=== PATIENT | male | born 1930 | race African-American/Black ===

== ENCOUNTER 2016-08-25 09:11 | Emergency (ER) | payer OTHER, BC ==
[2016-08-25 09:26] VITALS: RESP 16; TEMP 97.9; O2SAT 98
[2016-08-25] MEDS ORDERED: HYDROCODONE/APAP 5/325 TAB PO ONE ×2 (10:05→11:26)
[2016-08-25 10:39] VITALS: BP 132/87; PULSE 86
--- NOTE | 2016-08-25 11:40 | US ---
Ultrasound Venous Duplex/Doppler Right Leg History: Pain and swelling. *Leg pain, possible DVT* Findings: Ultrasound venous duplex and Doppler imaging of the common femoral vein, femoral vein, pop liteal vein, calf veins, greater saphenous vein origin, and contralateral common femoral vein demonst rates normal compressibility, color flow, and Doppler flow without deep venous thrombosis. Impression: No deep venous thrombosis right leg. Findings and recommendations discussed with Emergency Department physician, DESTINY Khan at 11:38 hour, 08/25/2016. Final report concurs with initial preliminary interpretation.
--- NOTE | 2016-08-25 11:44 | EDPHY ---
H & P Stated Complaint: Fall, 3 weeks ago, Right hip pain, leg swelling. Time Seen by Provider: 08/25/16 09:38 HPI/ROS: Chief complaint: Fall with right hip pain, swelling of right leg History of present illness: This is an 86-year-old male who presents to the emergency department with EMS from his assisted living home for evaluation of right hip pain and swelling of the right leg. Patient reportedly has a history of chronic hip pain. apparently patient fell 3 weeks ago. He has had increased right hip pain since then. Staff is also notices right leg appears slightly swollen. Patient denies other associated signs or symptoms. No report of fever , cough, shortness of breath, chest pain. Review of systems: A 10 point review of systems was obtained and other than described above is negative - Personal History Current Tetanus/Diphtheria Vaccine: Yes Current Tetanus Diphtheria and Acellular Pertussis (TDAP): Yes Tetanus Vaccine Date: UNSURE - Medical/Surgical History Hx Asthma: No Hx Chronic Respiratory Disease: No Hx Diabetes: No Hx Cardiac Disease: Yes Hx Renal Disease: No Hx Cirrhosis: No Hx Alcoholism: No Hx HIV/AIDS: No Hx Splenectomy or Spleen Trauma: No Other PMH: CAD, Stents x5, HTN, hyperlipidemia,CHF, hernis repair, R hip fx 01/28 , right hip fracture - Social History Smoking Status: Never smoked - Physical Exam Exam: General Appearance: Alert, nontoxic. Eyes: Pupils equal and round no injection. Respiratory: Chest is non tender, lungs are clear to auscultation. Cardiac: regular rate and rhythm Gastrointestinal: Abdomen is soft and non tender, no masses, bowel sounds normal. Musculoskeletal: Neck is supple and non tender. Tenderness to the right hip. It hurts when I range it. Trace edema to the right calf region as compared to the left. Skin: No rashes or lesions. Constitutional: Initial Vital Signs Temperature (C) 36.6 C 08/25/16 09:23 Heart Rate 98 08/25/16 09:23 Respiratory Rate 16 08/25/16 09:23 Blood Pressure 133/89 H 08/25/16 09:23 O2 Sat (%) 98 08/25/16 09:23 O2 Delivery Mode Room Air Allergies/Adverse Reactions: Penicillins Allergy (Mild, Verified 06/10/16 12:42) Rash Home Medications: Medication Instructions Recorded ALPRAZolam [Xanax 0.25 MG (*)] 0.25 mg PO HS PRN 03/23/16 Atorvastatin Calcium [Lipitor 40 40 mg PO HS 03/23/16 mg (*)] Pantoprazole Sodium [Protonix 40mg 40 mg PO DAILY 03/23/16 (*)] Acetaminophen [Tylenol 325mg (*)] 650 mg PO Q4 PRN #0 tab 03/26/16 Methyl Salicylate/Menthol [Icy Hot 1 madhuri TP PRN PRN 06/10/16 [place]] Ondansetron Odt [Zofran Odt 4 mg 4 mg PO Q6 PRN 06/10/16 (*)] Aspirin [Aspirin 81mg (*)] 81 mg PO DAILY #0 tab.chew 06/13/16 Carvedilol [Coreg (*)] 3.125 mg PO BIDMEAL #0 tab 06/13/16 Furosemide [Lasix 20 MG (*)] 20 mg PO DAILY #0 tab 06/13/16 Lisinopril [Zestril 2.5 mg (*)] 2.5 mg PO DAILY #0 tab 06/13/16 Potassium Cl [Klor-Con 20 meq (*)] 20 meq PO DAILY #0 tab 06/13/16 Melatonin 08/25/16 Medical Decision Making - Diagnostics Imaging: X-ray of the right hip negative for acute fracture Ultrasound of the right leg negative for DVT ED Course/Re-evaluation: Patient seen under the supervision of my secondary supervising physician Dr. Cristobal Cohen. Patient presents to the emergency department with EMS for right hip pain and right leg swelling. Patient is nontoxic. Vital signs are stable. X-ray of the right hip negative. Ultrasound right leg negative for DVT. He does have a history of chronic problems in this region. Likely an exacerbation. He is discharged back to his living facility. He is to follow up with his primary care doctor through there. Differential Diagnosis: Included but not limited to contusion, fracture, joint dislocation, DVT, superficial thrombophlebitis, cellulitis - Data Points Medications Given: Discontinued Medications Acetaminophen/Hydrocodone Bitart ([place] 5/325) 1 tab PO EDNOW ONE Stop: 08/25/16 10:06 Last Admin: 08/25/16 10:18 Dose: 1 tab Acetaminophen/Hydrocodone Bitart ([place] 5/325) 1 tab PO EDNOW ONE Stop: 08/25/16 11:27 Last Admin: 08/25/16 11:32 Dose: 1 tab Departure - Departure Disposition: Home, Routine, Self-Care Clinical Impression: Right hip pain Condition: Good Instructions: Hip Pain (ED) Additional Instructions: Follow-up with your primary care doctor for recheck next week If symptoms worsen or new symptoms develop return to the emergency department for recheck Referrals: [facility] [Primary Care Provider] - As per Instructions
--- NOTE | 2016-08-25 11:46 | DX ---
Right Hip, Two Views Indication: Hip pain Technique: AP and frog-leg lateral views. Comparison: Right hip series dated March 23, 2016 Findings: The configuration of the 4 cannulated screws in the right femoral neck is unchanged. No acu te fracture. Moderate bilateral hip osteoarthritis evidenced by joint space narrowing and marginal os teophytes is unchanged. Impression: 1. No acute fracture. 2. Bilateral osteoarthritis unchanged.
== END 2016-08-25 13:10 | disposition home or self-care (01) ==
LOC: EDUNIT#
DX: S79.911A Unspecified injury of right hip, initial encounter (principal); I10 Essential (primary) hypertension; I50.9 Heart failure, unspecified; I25.10 Atherosclerotic heart disease of native coronary artery without angina pectoris; Z95.5 Presence of coronary angioplasty implant and graft; Z79.82 Long term (current) use of aspirin; W19.XXXA Unspecified fall, initial encounter

== ENCOUNTER 2016-09-23 23:32 | Inpatient (IN) | payer OTHER, BC ==
[2016-09-23] MEDS ORDERED: NS 500 ML IV ONE (23:36)
--- NOTE | 2016-09-23 23:38 | EDPHY ---
H & P HPI/ROS: HPI CHIEF COMPLAINT: Chest pain, chest pain now resolved HISTORY OF PRESENT ILLNESS: This patient very pleasant 86-year-old male he lives in [facility], he presents emergency room by EMS for chest pain. Patient tells me he has had chest pain throughout the entire day it comes and goes however he has very poor historian with underlying dementia and does very poor job describing his chest pain. He tells me it is now resolved. Also tells me did hurt when you press on his chest wall. Of note this patient has significant past medical history for cardiac risk factors including coronary artery disease with multiple stents, diastolic heart failure last EF 15%, cardiomyopathy, hypertension, hyperlipidemia. Patient tells me had chest pain all day states he called 911 this evening as it got really bad. Since arrival to the emergency room by EMS that is resolved. Of note this patient was admitted back in May for chest pain had a positive troponin thought to due to be underlying cardiomyopathy reduced EF, her declined any aggressive measures declined cardiac catheterization or stress test was medically managed. declined AICD. Patient does poor job of explaining his chest pain he just tells me that his chest was really hurting him. In review of his records he is a full code. Past Medical History: Coronary artery disease with stents, dementia, diastolic heart failure EF 15%, cardiomyopathy, hypertension, hyperlipidemia Past Surgical History: No recent surgical history however hernia repair right hip surgery Social History: Denies use of drugs alcohol tobacco products, lives at [facility] Family History: noncontributory there is a present left bundle-branch block with ST depression V4 V5 V6 with T- wave inversions similar to previous EKG. Exam Constitutional triage nursing summary reviewed, vital signs reviewed, awake/ alert. Eyes normal conjunctivae and sclera, EOMI, PERRLA. HENT normal inspection, atraumatic, moist mucus membranes, no epistaxis, neck supple/ no meningismus, no raccoon eyes. Respiratory clear to auscultation bilaterally, normal breath sounds, no respiratory distress, no wheezing. Cardiovascular rate normal, regular rhythm, no murmur, no edema, distal pulses normal. Gastrointestinal soft, non-tender, no rebound, no guarding, normal bowel sounds, no distension, no pulsatile mass. Genitourinary no CVA tenderness. Musculoskeletal no midline vertebral tenderness, full range of motion, no calf swelling, no tenderness of extremities, no meningismus, good pulses, neurovascularly intact. Skin pink, warm, & dry, no rash, skin atraumatic. Neurologic awake, alert and oriented x 3, AAOx3, moves all 4 extremities equally, motor intact, sensory intact, CN II-XII intact, normal cerebellar, normal vision, normal speech. Psychiatric normal mood/affect. Heme/Lymph/Immune no lymphadenopathy. Differential diagnosis includes but is not limited to: ACS, atypical chest pain , pneumothorax, pneumonia, pulmonary embolism, aortic dissection, congestive heart failure, tumor, musculoskeletal pain, esophageal pain, GERD, peptic ulcer disease, pancreatitis Medical Decision Making: This patient will be placed on full cardiac sonographer, an IV will be established, patient had an EKG, chest x-ray, blood work including troponin, BNP receive full-dose aspirin however he is chest pain-free at this time. Re-evaluation: EKG interpretation by me on record in [employer] system. Impression time of EKG 12:05 a.m.: This EKG is sinus rhythm rate of 96, left bundle-branch block present. Compared to his old EKG dated: 06/10/2016, very similar morphology no acute changes seen. Does have ST depression in V4 V5 V6 with T- wave abnormalities. ED x-ray chest one view: image interpreted myself. Shows cardiomegaly, there is either multifocal pneumonia or atypical infiltrates adverse asymmetrical pulmonary edema. There is also superimposed pulmonary edema bilaterally with cephalization of fluid. There is upset duration of the right heart border as well as the left lower heart border. Image interpreted by myself EKG interpretation by me on record in [employer] system. Impression time of EKG 1:33 a.m., this is sinus rhythm rate of 68, no acute ischemic changes specifically no ST elevation, ST depression, T-wave abnormalities prolonged intervals. Unremarkable EKG. 0151: This patient's blood work and x-ray indicate that this patient is an volume overload. The patient is not hypoxic is hemodynamically stable here is not overly hypertensive. Patient is resting comfortably has no chest pain at this time. I have admitted him to the hospitalist service to be diuresed, his chest x-ray shows asymmetrical pulmonary edema, his CT scan shows bilateral pleural effusions cardiomegaly and pulmonary edema This patient will be diuresed I have ordered him IV Lasix 40 mg. Patient be admitted to PCU for CHF, pulmonary edema, volume overload. Dr. Lentz agrees to admit this patient. Source: Patient, EMS Exam Limitations: Clinical condition - Personal History Tetanus Vaccine Date: UNSURE - Medical/Surgical History Hx Asthma: No Hx Chronic Respiratory Disease: No Hx Diabetes: No Hx Cardiac Disease: Yes Hx Renal Disease: No Hx Cirrhosis: No Hx Alcoholism: No Hx HIV/AIDS: No Hx Splenectomy or Spleen Trauma: No Other PMH: CAD, Stents x5, HTN, hyperlipidemia,CHF, hernis repair, R hip fx 01/28 , right hip fracture - Social History Smoking Status: Never smoked Constitutional: Initial Vital Signs Temperature (C) 36.3 C 09/23/16 23:35 Heart Rate 100 09/23/16 23:35 Respiratory Rate 18 09/23/16 23:35 Blood Pressure 155/114 H 09/23/16 23:35 O2 Sat (%) 95 09/23/16 23:35 O2 Delivery Mode Room Air Allergies/Adverse Reactions: Penicillins Allergy (Mild, Verified 09/23/16 23:44) Rash Home Medications: Medication Instructions Recorded ALPRAZolam [Xanax 0.25 MG (*)] 0.25 mg PO HS PRN 03/23/16 Atorvastatin Calcium [Lipitor 40 40 mg PO HS 03/23/16 mg (*)] Pantoprazole Sodium [Protonix 40mg 40 mg PO DAILY 03/23/16 (*)] Acetaminophen [Tylenol 325mg (*)] 650 mg PO Q4 PRN #0 tab 03/26/16 Methyl Salicylate/Menthol [Icy Hot 1 madhuri TP PRN PRN 06/10/16 [place]] Ondansetron Odt [Zofran Odt 4 mg 4 mg PO Q6 PRN 06/10/16 (*)] Aspirin [Aspirin 81mg (*)] 81 mg PO DAILY #0 tab.chew 06/13/16 Carvedilol [Coreg (*)] 3.125 mg PO BIDMEAL #0 tab 06/13/16 Furosemide [Lasix 20 MG (*)] 20 mg PO DAILY #0 tab 06/13/16 Lisinopril [Zestril 2.5 mg (*)] 2.5 mg PO DAILY #0 tab 06/13/16 Potassium Cl [Klor-Con 20 meq (*)] 20 meq PO DAILY #0 tab 06/13/16 Melatonin 08/25/16 Mylanta Liquid 09/23/16 Medical Decision Making - Data Points Laboratory Results: Laboratory Results 09/24/16 00:07 09/24/16 00:07 09/24/16 09/24/16 09/24/16 00:07 00:07 00:07 WBC RBC Hgb Hct MCV MCH MCHC RDW Plt Count MPV Neut % (Auto) Lymph % (Auto) Mclean % (Auto) Eos % (Auto) Baso % (Auto) Nucleat RBC Rel Count Absolute Neuts (auto) Absolute Lymphs (auto) Absolute Monos (auto) Absolute Eos (auto) Absolute Basos (auto) Absolute Nucleated RBC Immature Gran % Immature Gran # PT 15.0 SEC SEC (12.0-15.0) INR 1.18 H (0.83-1.16) APTT 32.3 SEC SEC (23.0-38.0) VBG Lactic Acid 1.9 mmol/L mmol/L (0.7-2.1) Sodium 144 mEq/L mEq/L (134-144) Potassium 4.5 mEq/L mEq/L (3.5-5.2) Chloride 108 mEq/L mEq/L (97-110) Carbon Dioxide 22 mEq/l mEq/l (22-31) Anion Gap 14 mEq/L mEq/L (8-16) BUN 19 mg/dL mg/dL (7-23) Creatinine 0.8 mg/dL mg/dL (0.7-1.3) Estimated GFR > 60 Glucose 124 mg/dL H mg/dL (70-100) Calcium 8.9 mg/dL mg/dL (8.5-10.4) Magnesium 1.9 mg/dL mg/dL (1.6-2.3) Total Bilirubin 0.8 mg/dL mg/dL (0.1-1.4) Conjugated Bilirubin 0.4 mg/dL mg/dL (0.0-0.5) Unconjugated Bilirubin 0.4 mg/dL mg/dL (0.0-1.1) AST 31 IU/L IU/L (17-59) ALT 37 IU/L IU/L (21-72) Alkaline Phosphatase 76 IU/L IU/L (38-126) Creatine Kinase 41 IU/L IU/L (0-224) CK-MB (CK-2) Fraction 0.66 ng/mL ng/mL (0-3.19) Troponin I 0.023 ng/mL ng/mL (0-0.034) NT-Pro-B Natriuret Pep 6900 pg/mL H pg/mL (0-450) Total Protein 6.5 g/dL g/dL (6.3-8.2) Albumin 3.5 g/dL g/dL (3.5-5.0) Lipase 107.0 IU/L IU/L (23-300) 09/24/16 00:07 WBC 7.18 10^3/uL 10^3/uL (3.80-9.50) RBC 4.49 10^6/uL 10^6/uL (4.40-6.38) Hgb 13.1 g/dL L g/dL (13.7-17.5) Hct 39.6 % L % (40.0-51.0) MCV 88.2 fL fL (81.5-99.8) MCH 29.2 pg pg (27.9-34.1) MCHC 33.1 g/dL g/dL (32.4-36.7) RDW 16.5 % H % (11.5-15.2) Plt Count 268 10^3/uL 10^3/uL (150-400) MPV 9.2 fL fL (8.7-11.7) Neut % (Auto) 70.4 % % (39.3-74.2) Lymph % (Auto) 18.1 % % (15.0-45.0) Mclean % (Auto) 8.8 % % (4.5-13.0) Eos % (Auto) 1.8 % % (0.6-7.6) Baso % (Auto) 0.6 % % (0.3-1.7) Nucleat RBC Rel Count 0.0 % % (0.0-0.2) Absolute Neuts (auto) 5.06 10^3/uL 10^3/uL (1.70-6.50) Absolute Lymphs (auto) 1.30 10^3/uL 10^3/uL (1.00-3.00) Absolute Monos (auto) 0.63 10^3/uL 10^3/uL (0.30-0.80) Absolute Eos (auto) 0.13 10^3/uL 10^3/uL (0.03-0.40) Absolute Basos (auto) 0.04 10^3/uL 10^3/uL (0.02-0.10) Absolute Nucleated RBC 0.00 10^3/uL 10^3/uL (0-0.01) Immature Gran % 0.3 % % (0.0-1.1) Immature Gran # 0.02 10^3/uL 10^3/uL (0.00-0.10) PT INR APTT VBG Lactic Acid Sodium Potassium Chloride Carbon Dioxide Anion Gap BUN Creatinine Estimated GFR Glucose Calcium Magnesium Total Bilirubin Conjugated Bilirubin Unconjugated Bilirubin AST ALT Alkaline Phosphatase Creatine Kinase CK-MB (CK-2) Fraction Troponin I NT-Pro-B Natriuret Pep Total Protein Albumin Lipase Medications Given: Discontinued Medications Aspirin (Aspirin) 324 mg PO EDNOW ONE Stop: 09/23/16 23:43 Last Admin: 09/24/16 00:00 Dose: 324 mg Furosemide (Lasix Injection) 40 mg IVP EDNOW ONE Stop: 09/24/16 00:58 Last Admin: 09/24/16 01:45 Dose: 40 mg Sodium Chloride (Ns) 500 mls @ 0 mls/hr IV ONCE ONE PRN Reason: As Directed Stop: 09/23/16 23:37 Last Admin: 09/24/16 00:00 Dose: 500 mls Departure - Departure Disposition: [facility] Inpatient Acute Clinical Impression: Acute decompensated heart failure Chest pain Qualifiers: Chest pain type: other chest pain Qualified Code(s): R07.89 - Other chest pain ; R07.8 - Other chest pain Pulmonary edema Qualifiers: Chronicity: acute Qualified Code(s): J81.0 - Acute pulmonary edema Volume overload Qualifiers: Hypervolemia type: unspecified Qualified Code(s): E87.70 - Fluid overload, unspecified Condition: Fair Referrals: [facility] [Primary Care Provider] - As per Instructions
[2016-09-23] MEDS ORDERED: ASPIRIN 81 MG CHEWABLE TAB PO ONE (23:42)
--- NOTE | 2016-09-24 00:07 | CPEKG ---
Heart Rate: 96 RR Interval: 625 P-R Interval: 200 QRSD Interval: 160 QT Interval: 428 QTC Interval: 541 P [place]: 33 QRS [place]: -39 T Wave [place]: 121 EKG Severity - ABNORMAL ECG - EKG Impression: SINUS RHYTHM EKG Impression: LEFT BUNDLE BRANCH BLOCK Electronically Signed By: Kel Tierney 26-Sep-2016 15:10:37
[2016-09-24 00:14] LABS: % IMMATURE GRANULYOCYTES 0.3 % (0.0-1.1); ABSOLUTE IMMATURE GRANULOCYTES 0.02 10^3/uL (0.00-0.10); ADD DIFF? NO; ADD MORPH? NO; ADD SCAN? NO; ATYPICAL LYMPHOCYTE FLAG 40 (0-99); FRAGMENT RBC FLAG 0 (0-99); HEMATOCRIT 39.6 % (40.0-51.0); HEMOGLOBIN 13.1 g/dL (13.7-17.5); LEFT SHIFT FLG 10 (0-99); LIPEMIA HEMOLYSIS FLAG 80 (0-99); MEAN CELL HEMOGLOBIN 29.2 pg (27.9-34.1); MEAN CELL HEMOGLOBIN CONCENTR. 33.1 g/dL (32.4-36.7); MEAN CELL VOLUME 88.2 fL (81.5-99.8); MEAN PLATELET VOLUME 9.2 fL (8.7-11.7); PLATELET CLUMPS FLAG 0 (0-99); PLATELET COUNT 268 10^3/uL (150-400); RED BLOOD CELL COUNT 4.49 10^6/uL (4.40-6.38); RED CELL DISTRIBUTION WIDTH 16.5 % (11.5-15.2)
[2016-09-24 00:23] LABS: INR 1.18 (0.83-1.16)
[2016-09-24 00:24] LABS: APTT 32.3 SEC (23.0-38.0)
[2016-09-24 00:38] LABS: ALANINE AMINOTRANSFERASE 37 IU/L (21-72); ALBUMIN 3.5 g/dL (3.5-5.0); ALKALINE PHOSPHATASE 76 IU/L (38-126); ANION GAP 14 mEq/L (8-16); ASPARTATE AMINOTRANSFERASE 31 IU/L (17-59); BILIRUBIN,TOTAL 0.8 mg/dL (0.1-1.4); BILIRUBIN-CONJUGATED 0.4 mg/dL (0.0-0.5); BILIRUBIN-UNCONJUGATED 0.4 mg/dL (0.0-1.1); CALCIUM 8.9 mg/dL (8.5-10.4); CARBON DIOXIDE 22 mEq/l (22-31); CHLORIDE 108 mEq/L (97-110); CREATININE 0.8 mg/dL (0.7-1.3); GLOMERULAR FILTRATION RATE > 60; GLUCOSE 124 mg/dL (70-100); MAGNESIUM 1.9 mg/dL (1.6-2.3); POTASSIUM 4.5 mEq/L (3.5-5.2); SODIUM 144 mEq/L (134-144); TOTAL PROTEIN 6.5 g/dL (6.3-8.2)
[2016-09-24] MEDS ORDERED: IOPAMIDOL (ISOVUE-300) 100 ML BTL IV ONE ×2 (00:46→01:11)
[2016-09-24 00:49] LABS: CREATINE KINASE-MB FRACTION 0.66 ng/mL (0-3.19)
[2016-09-24] MEDS ORDERED: FUROSEMIDE 40 MG/4 ML VIAL IVP ONE (00:57)
[2016-09-24 01:00] LABS: TROPONIN I 0.023 ng/mL (0-0.034)
[2016-09-24] MEDS ORDERED: ONDANSETRON 4 MG/2 ML VIAL IVP PRN (03:53)
[2016-09-24] MEDS ORDERED: ACETAMINOPHEN 325 MG TAB PO PRN (03:53)
[2016-09-24] MEDS ORDERED: ONDANSETRON DISINTEGRATING 4 MG TAB PO PRN (03:53)
[2016-09-24] MEDS ORDERED: HYDROCODONE/APAP 5/325 TAB PO PRN (03:53)
--- NOTE | 2016-09-24 04:15 | PDGENHP ---
History and Physical - Chief Complaint chest pain - History of Present Illness Patient is an 86/M with CAD, HTN, HLD and severe systolic/diastolic CHF (EF 15% in 05/2016) who presents to the ED with complaint of shortness of breath and chest pain. Patient states for the past week he has been unable to sleep due to sensation of dyspnea when lying flat. Today, in the evening prior to arrival, he also began experiencing chest pain and tightness associated with the dyspnea. He denies any palpitations, lightheadedness, dizziness, abdominal pain , n/v/d. He also denies any recent fevers, chills, but does report a dry cough. Given his complaint of chest pain, he was transported to the Ed for further evaluation On arrival to the Ed, patient was afebrile and hemodynamically stable. Labs revealed normal CBC and BMP, but indeterminant trop and elevated BNP. CXR revealed bilateral effusions. CT angio chest was also obtained, which ruled out PE and showed b/l effusions and edema. EKG showed his old LBBB without obvious change. He was initiated on diuresis and admitted to the hospitalist service for further management. History Information - Allergies/Home Medication List Allergies/Adverse Reactions: Penicillins Allergy (Mild, Verified 09/23/16 23:44) Rash Home Medications: ALPRAZolam [Xanax 0.25 MG (*)] 0.25 mg PO HS PRN 03/23/16 [Last Taken Unknown] Atorvastatin Calcium [Lipitor 40 mg (*)] 40 mg PO HS 03/23/16 [Last Taken Unknown] Pantoprazole Sodium [Protonix 40mg (*)] 40 mg PO DAILY 03/23/16 [Last Taken Unknown] Methyl Salicylate/Menthol [Icy Hot [place]] 1 madhuri TP PRN PRN 06/10/16 [Last Taken Unknown] Ondansetron Odt [Zofran Odt 4 mg (*)] 4 mg PO Q6 PRN 06/10/16 [Last Taken Unknown] Melatonin 08/25/16 [Last Taken Unknown] Mylanta Liquid 09/23/16 [Last Taken Unknown] I have personally reviewed and updated: family history, medical history, social history, surgical history - Past Medical History Additional medical history: CAD, s/p multiple PCIs. CHF, global hypokinesis with EF 15% in 05/2016. HTN. chronic LBBB. HLD. mild dementia. R hip fracture without surgical repair, wheelchair bound - Surgical History Additional surgical history: R hip percutaneous pinning - Family History Positive for: non-pertinent - Social History Smoking Status: Never smoked Alcohol Use: None Drug Use: None Additional social history: Currently resides in [facility], wheelchair bound. Retired from the [employer], originally from [place]. Review of Systems ROS: 10pt was reviewed & negative except for what was stated in HPI & below Physical Exam Temp Pulse Resp BP Pulse Ox 36.3 C 86 16 143/88 H 97 09/24/16 03:15 09/24/16 03:15 09/24/16 03:15 09/24/16 03:15 09/24/16 03:15 Constitutional: no apparent distress, appears nourished, not in pain Eyes: PERRL, anicteric sclera, EOMI Ears, Nose, Mouth, Throat: moist mucous membranes, hearing normal, ears appear normal, no oral mucosal ulcers Cardiovascular: regular rate and rhythym, no murmur, rub, or gallop, edema (1-2+ , R>L) Peripheral Pulses: 2+: dorsalis-pedis (R), dorsalis-pedis (L) Respiratory: no respiratory distress, no rales or rhonchi, reduced air movement (in bilateral bases) Gastrointestinal: normoactive bowel sounds, soft, non-tender abdomen, no palpable masses, No guarding, No rebound, No distension Genitourinary: no bladder fullness, no bladder tenderness Skin: warm, normal color, no rashes or abrasions, no fluctuance, no induration, No mottled Musculoskeletal: full muscle strength, no muscle tenderness, normal joint ROM, no joint effusions Neurologic: AAOx3, sensation intact bilaterally, CN II-XII Intact, No weakness, No numbness, No facial droop Psychiatric: interacting appropriately, not anxious, not encephalopathic, thought process linear Lab Data & Imaging Review 09/24/16 00:07 09/24/16 00:07 WBC 7.18 10^3/uL (3.80-9.50) 09/24/16 00:07 RBC 4.49 10^6/uL (4.40-6.38) 09/24/16 00:07 Hgb 13.1 g/dL (13.7-17.5) L 09/24/16 00:07 Hct 39.6 % (40.0-51.0) L 09/24/16 00:07 MCV 88.2 fL (81.5-99.8) 09/24/16 00:07 MCH 29.2 pg (27.9-34.1) 09/24/16 00:07 MCHC 33.1 g/dL (32.4-36.7) 09/24/16 00:07 RDW 16.5 % (11.5-15.2) H 09/24/16 00:07 Plt Count 268 10^3/uL (150-400) 09/24/16 00:07 MPV 9.2 fL (8.7-11.7) 09/24/16 00:07 Neut % (Auto) 70.4 % (39.3-74.2) 09/24/16 00:07 Lymph % (Auto) 18.1 % (15.0-45.0) 09/24/16 00:07 [place] % (Auto) 8.8 % (4.5-13.0) 09/24/16 00:07 Eos % (Auto) 1.8 % (0.6-7.6) 09/24/16 00:07 Baso % (Auto) 0.6 % (0.3-1.7) 09/24/16 00:07 Nucleat RBC Rel Count 0.0 % (0.0-0.2) 09/24/16 00:07 Absolute Neuts (auto) 5.06 10^3/uL (1.70-6.50) 09/24/16 00:07 Absolute Lymphs (auto) 1.30 10^3/uL (1.00-3.00) 09/24/16 00:07 Absolute Monos (auto) 0.63 10^3/uL (0.30-0.80) 09/24/16 00:07 Absolute Eos (auto) 0.13 10^3/uL (0.03-0.40) 09/24/16 00:07 Absolute Basos (auto) 0.04 10^3/uL (0.02-0.10) 09/24/16 00:07 Absolute Nucleated RBC 0.00 10^3/uL (0-0.01) 09/24/16 00:07 Immature Gran % 0.3 % (0.0-1.1) 09/24/16 00:07 Immature Gran # 0.02 10^3/uL (0.00-0.10) 09/24/16 00:07 PT 15.0 SEC (12.0-15.0) 09/24/16 00:07 INR 1.18 (0.83-1.16) H 09/24/16 00:07 APTT 32.3 SEC (23.0-38.0) 09/24/16 00:07 VBG Lactic Acid 1.9 mmol/L (0.7-2.1) 09/24/16 00:07 Sodium 144 mEq/L (134-144) 09/24/16 00:07 Potassium 4.5 mEq/L (3.5-5.2) 09/24/16 00:07 Chloride 108 mEq/L (97-110) 09/24/16 00:07 Carbon Dioxide 22 mEq/l (22-31) 09/24/16 00:07 Anion Gap 14 mEq/L (8-16) 09/24/16 00:07 BUN 19 mg/dL (7-23) 09/24/16 00:07 Creatinine 0.8 mg/dL (0.7-1.3) 09/24/16 00:07 Estimated GFR > 60 09/24/16 00:07 Glucose 124 mg/dL (70-100) H 09/24/16 00:07 Calcium 8.9 mg/dL (8.5-10.4) 09/24/16 00:07 Magnesium 1.9 mg/dL (1.6-2.3) 09/24/16 00:07 Total Bilirubin 0.8 mg/dL (0.1-1.4) 09/24/16 00:07 Conjugated Bilirubin 0.4 mg/dL (0.0-0.5) 09/24/16 00:07 Unconjugated Bilirubin 0.4 mg/dL (0.0-1.1) 09/24/16 00:07 AST 31 IU/L (17-59) 09/24/16 00:07 ALT 37 IU/L (21-72) 09/24/16 00:07 Alkaline Phosphatase 76 IU/L (38-126) 09/24/16 00:07 Creatine Kinase 41 IU/L (0-224) 09/24/16 00:07 CK-MB (CK-2) Fraction 0.66 ng/mL (0-3.19) 09/24/16 00:07 Troponin I 0.023 ng/mL (0-0.034) 09/24/16 00:07 NT-Pro-B Natriuret Pep 6900 pg/mL (0-450) H 09/24/16 00:07 Total Protein 6.5 g/dL (6.3-8.2) 09/24/16 00:07 Albumin 3.5 g/dL (3.5-5.0) 09/24/16 00:07 Lipase 107.0 IU/L (23-300) 09/24/16 00:07 Visualized and Interpreted Chest x-ray results: Yes Chest X-Ray results: effusion Visualized and Interpreted imaging results: Yes Interpretation: CT angio chest: no pulm emboli, b/l pleural effusions with pulmonary edema Visualized and Interpreted EKG results: Yes EKG Interpretation: Positive for: left bundle branch block (old) Assessment & Plan Assessment: Patient is an 86/M with HTN, HLD, CAD and severe chronic systolic CHF who presents to the ED with 1 week of worsening orthopnea and dyspnea, which has become associated with intermittent chest pain. ED work up reveals acute decompensated systolic heart failure. Plan: # acute on chronic systolic CHF Patient is complaining of increasing dyspnea and orthopnea x 1 week. In addition , his admission weight is > 10 kg over previous admission weight, he has bilateral pitting edema. BNP is significantly elevated above previous levels, CXR/CT chest also shows bilateral pleural effusions and pulmonary edema. However , patient is saturating well on room air and respiration is unlabored. - monitor strict I/Os, daily weights - aggressive lasix diuresis - monitor electrolytes, with goal K>4, Mg>2 - trend troponins, monitor EKGs and telemetry - re-check TTE - confirm and continue home HF regimen, including B-sherrie, ACEI, statin and aspirin # chest pain, known CAD Patient reports intermittent chest pain on the evening prior to presenting to ED. On my evaluation, he denied any symptoms. Troponin is indeterminately elevated, likely demand ischemia in setting of decompensated HF. Will cont to trend cardiac enzymes and cont all home meds. # HLD Cont home statin. # dispo: admit to inpatient service for likely > 2 [place] stay given acute decompensated heart failure requiring diuresis # gen: Cardiac diet DVT ppx: lovenox Full code
[2016-09-24 05:55] LABS: % IMMATURE GRANULYOCYTES 0.2 % (0.0-1.1); ABSOLUTE IMMATURE GRANULOCYTES 0.01 10^3/uL (0.00-0.10); ADD DIFF? NO; ADD MORPH? NO; ADD SCAN? NO; ATYPICAL LYMPHOCYTE FLAG 20 (0-99); FRAGMENT RBC FLAG 0 (0-99); HEMATOCRIT 39.4 % (40.0-51.0); HEMOGLOBIN 13.2 g/dL (13.7-17.5); LEFT SHIFT FLG 0 (0-99); LIPEMIA HEMOLYSIS FLAG 80 (0-99); MEAN CELL HEMOGLOBIN 29.9 pg (27.9-34.1); MEAN CELL HEMOGLOBIN CONCENTR. 33.5 g/dL (32.4-36.7); MEAN CELL VOLUME 89.3 fL (81.5-99.8); MEAN PLATELET VOLUME 9.3 fL (8.7-11.7); PLATELET CLUMPS FLAG 0 (0-99); PLATELET COUNT 273 10^3/uL (150-400); RED BLOOD CELL COUNT 4.41 10^6/uL (4.40-6.38); RED CELL DISTRIBUTION WIDTH 16.3 % (11.5-15.2)
[2016-09-24 06:13] LABS: ANION GAP 11 mEq/L (8-16); CALCIUM 8.8 mg/dL (8.5-10.4); CARBON DIOXIDE 21 mEq/l (22-31); CHLORIDE 107 mEq/L (97-110); CREATININE 0.8 mg/dL (0.7-1.3); GLOMERULAR FILTRATION RATE > 60; GLUCOSE 115 mg/dL (70-100); MAGNESIUM 1.8 mg/dL (1.6-2.3); POTASSIUM 4.2 mEq/L (3.5-5.2); SODIUM 139 mEq/L (134-144)
[2016-09-24 06:15] LABS: APTT 33.5 SEC (23.0-38.0); INR 1.2 (0.83-1.16); PROTIME(PATIENT) 15.2 SEC (12.0-15.0)
[2016-09-24 06:23] LABS: TROPONIN I 0.015 ng/mL (0-0.034)
[2016-09-24] MEDS: FUROSEMIDE 40 MG/4 ML VIAL IVP SCH ×3 (06:27→22:00)
[2016-09-24] MEDS: ENOXAPARIN 40 MG/0.4 ML SYR SC SCH (10:55)
[2016-09-24] MEDS ORDERED: MENTHOL TP PRN ×2 (10:59→11:35)
[2016-09-24] MEDS ORDERED: METHYL SALICYLATE TP PRN ×2 (10:59→11:35)
[2016-09-24] MEDS ORDERED: ALPRAZolam 0.5 MG TAB PO PRN (10:59)
[2016-09-24] MEDS ORDERED: MAG HYDROX/AL HYDROX/SIMETH 30 ML UDCUP PO PRN (11:00)
--- NOTE | 2016-09-24 11:22 | HOSPPROG ---
Hospitalist Progress Note Assessment/Plan: # acute on chronic systolic CHF exacerbation: EF 15% - cont lasix 40 iv Q8 - cont coreg, lisinopril - recheck labs, CXR tomorrow am - no biV or AICD in place - echo pending # CAD s/p pci - trops flat, doubt ACS - cont asa, statin, coreg, lisinopril - chronic LBBB # w/c bound - lives at [facility] # L hip fx, no surgical repair # HLD # FCFT # lovenox ## new pt to me ECG personally reviewed CXR personally reviewed CT reviewed Subjective: ongoing dyspnea Objective: Vital Signs Temp Pulse Resp BP Pulse Ox 36.6 C 77 17 124/75 H 99 09/24/16 08:08 09/24/16 08:08 09/24/16 08:08 09/24/16 08:08 09/24/16 08:08 Laboratory Results 09/24/16 05:42 09/24/16 05:42 09/23/16 09/24/16 09/25/16 04:59 05:59 05:59 Output Total 800 Balance -800 PT 15.2 SEC (12.0-15.0) H 09/24/16 05:42 INR 1.20 (0.83-1.16) H 09/24/16 05:42 - Physical Exam Constitutional: cachectic Cardiovascular: regular rate and rhythym, systolic murmur, No irregularly irregular, No tachycardia, No bradycardia Respiratory: no respiratory distress, no rales or rhonchi, clear to auscultation Gastrointestinal: normoactive bowel sounds, soft, non-tender abdomen, no palpable masses ICD10 Worksheet Patient Problems: Problems Problem Status Onset Chest pain Acute CAD (coronary artery disease) Acute CHF (congestive heart failure) Acute Closed right hip fracture Acute UTI (urinary tract infection) Acute Generalized weakness Acute Hip fracture Acute Chronic Disease Mgmt/Transitional Care Acute Palliative care encounter Acute Pulmonary edema Acute Volume overload Acute Acute decompensated heart failure Acute
[2016-09-24] MEDS: CARVEDILOL 3.125 MG TAB PO SCH (17:14)
[2016-09-24] MEDS: ATORVASTATIN CALCIUM 40 MG TAB PO SCH (20:08)
[2016-09-24] MEDS: traZODone 50 MG TAB PO SCH (20:08)
[2016-09-24] MEDS ORDERED: MELATONIN 3 MG TAB PO SCH (21:00)
[2016-09-25 04:56] LABS: % IMMATURE GRANULYOCYTES 0.3 % (0.0-1.1); ABSOLUTE IMMATURE GRANULOCYTES 0.02 10^3/uL (0.00-0.10); ADD DIFF? NO; ADD MORPH? NO; ADD SCAN? NO; ATYPICAL LYMPHOCYTE FLAG 30 (0-99); FRAGMENT RBC FLAG 0 (0-99); HEMATOCRIT 39.2 % (40.0-51.0); HEMOGLOBIN 13.3 g/dL (13.7-17.5); LEFT SHIFT FLG 0 (0-99); LIPEMIA HEMOLYSIS FLAG 90 (0-99); MEAN CELL HEMOGLOBIN CONCENTR. 33.9 g/dL (32.4-36.7); MEAN CELL VOLUME 88.3 fL (81.5-99.8); MEAN PLATELET VOLUME 9.2 fL (8.7-11.7); PLATELET CLUMPS FLAG 10 (0-99); PLATELET COUNT 283 10^3/uL (150-400); RED BLOOD CELL COUNT 4.44 10^6/uL (4.40-6.38); RED CELL DISTRIBUTION WIDTH 16.3 % (11.5-15.2)
[2016-09-25 05:09] LABS: ANION GAP 10 mEq/L (8-16); CALCIUM 8.7 mg/dL (8.5-10.4); CARBON DIOXIDE 24 mEq/l (22-31); CHLORIDE 105 mEq/L (97-110); CREATININE 0.8 mg/dL (0.7-1.3); GLOMERULAR FILTRATION RATE > 60; GLUCOSE 105 mg/dL (70-100); POTASSIUM 3.7 mEq/L (3.5-5.2); SODIUM 139 mEq/L (134-144)
[2016-09-25] MEDS: FUROSEMIDE 40 MG/4 ML VIAL IVP SCH ×3 (05:50→15:10)
[2016-09-25] MEDS: LISINOPRIL 2.5 MG TAB PO SCH (08:48)
[2016-09-25] MEDS: ASPIRIN EC 81 MG TAB PO SCH (08:48)
[2016-09-25] MEDS: PANTOPRAZOLE SODIUM 40 MG TAB PO SCH (08:48)
[2016-09-25] MEDS: POTASSIUM CL 20 MEQ TAB PO SCH (08:48)
[2016-09-25] MEDS: ENOXAPARIN 40 MG/0.4 ML SYR SC SCH (08:48)
[2016-09-25] MEDS: CARVEDILOL 3.125 MG TAB PO SCH ×2 (08:48→18:00)
[2016-09-25 10:53] LABS: COLOR PALE YELLOW; LEUKOCYTE ESTERASE,URINE NEGATIVE (NEGATIVE); NITRITE,URINE NEGATIVE (NEGATIVE)
--- NOTE | 2016-09-25 11:34 | ECHO ---
[id number] + + [address] : : [place] [id number] : : [phone] + + Adult Echocardiographic Report + -----+ :Name: SITA LUCERO JStudy Date: 09/24/2016 10:20 AM : : Hospital Admission Number: [id number] : :: 1930 Gender: Male Height: 74 in : :Age: 86 yrs Race: BAA Weight: 184 lb : :Reason For Study: CHF exacerbation : : BSA: 2.1 me ters2: :History: CHF, CAD : + -----+ MMode/2D Measurements \T\ Calculations IVSd: 1.2 cm LVIDd: 5.2 cm FS: 6.0 % LVOT diam: 2.1 cm LVPWd: 1.3 cm LVIDs: 4.9 cm EDV(Teich): LVOT area: 131.8 ml 3.5 cm2 ESV(Teich): 114.2 ml EF(Teich): 13.3 % LVLd ap4: 7.2 cm SV(MOD-sp4): EDV(MOD-sp4): 26.0 ml 113.0 ml LVLs ap4: 7.1 cm ESV(MOD-sp4): 87.0 ml EF(MOD-sp4): 23.0 % Normal Measurement Values: + + :LVIDd (3.5-5.7cm) IVSd (0.6-1.1cm) LVPWd (0.6-1.1cm) Aortic Root (2.0-3.7cm)Left Atrium (1.5-4.0cm): :LV Vol(d) (76-115ml) LV Vol(s) (29-48ml) Ejec Fraction (50-65%)PV Balaji (0.6- 1.2m/s) TV Balaji (0.4-1.0m/s) : :MV E Balaji (0.8-1.0m/s)MV A Balaji (0.3-1.0m/s)LVOT Balaji (0.7-1.2m/s) Asc Ao Balaji ( 0.9-1.8m/s) : + + Doppler Measurements \T\ Calculations MV E max balaji: Ao mean PG: LV V1 mean PG: MR max balaji: 68.1 cm/sec 1.0 mmHg 0.99 mmHg 255.2 cm/sec MV A max balaji: Ao V2 mean: LV V1 mean: MR max P.5 cm/sec 47.2 cm/sec 46.1 cm/sec 26.0 mmHg MV E/A: 0.90 Ao V2 VTI: 11.5 cm LV V1 VTI: 12.5 cm MV dec time: FLORI(I,D): 3.9 cm2 0.23 sec SV(LVOT): 44.3 ml PA V2 max: TR max balaji: 77.4 cm/sec 201.7 cm/sec PA max PG: TR max P.4 mmHg 16.3 mmHg RAP systole: 10.0 mmHg RVSP(TR): 26.3 mmHg Left Ventricle The left ventricle is normal in size. There is mild concentric left ventricular hypertrophy. Ejection Fraction = 20%. There is Doppler evidence for diastolic dysfunction. There is severe global hypokinesis of the left ventricle. Basal and Mid Inferior Akinesis. Severe Inferolateral Hypokinesis. Right Ventricle The right ventricle is normal in size and function. Atria The left atrial size is normal. Right atrial size is normal. The interatrial septum is intact with no evidence for an atrial septal defect. Mitral Valve The mitral valve is normal in structure and function. There is no mitral valve stenosis. There is mild mitral regurgitation. Tricuspid Valve The tricuspid valve is normal in structure and function. There is no tricuspid stenosis. There is mild tricuspid regurgitation. Right ventricular systolic pressure is normal. Aortic Valve The aortic valve is trileaflet. There is moderate aortic valve calcification. There is no aortic stenosis. Mild aortic regurgitation. Pulmonic Valve The pulmonic valve is not well visualized. There is no pulmonic valvular stenosis. There is no pulmonic valvular regurgitation. Great Vessels The aortic root is normal size. Dilated Decending Aorta. Pericardium/Pleural There is a fat pad seen. Conclusion A complete two-dimensional transthoracic echocardiogram was performed (2D, M-mode, Doppler and color flow Doppler). The left ventricle is normal in size. There is mild concentric left ventricular hypertrophy. Ejection Fraction = 20%. There is Doppler evidence for diastolic dysfunction. Basal and Mid Inferior Akinesis. Severe Inferolateral Hypokinesis. There is severe global hypokinesis of the left ventricle. There is mild mitral regurgitation. There is mild tricuspid regurgitation. Right ventricular systolic pressure is normal. There is moderate aortic valve calcification. Mild aortic regurgitation. Dilated Decending Aorta Final Reading Physician: Nicki Calderon signed on 09/25/2016 11:32 AM Ordering Physician: Crystal Lentz Performed By: Rylee Trinidad
--- NOTE | 2016-09-25 14:38 | HOSPPROG ---
Hospitalist Progress Note Assessment/Plan: # acute on chronic systolic CHF exacerbation: EF 15%; overall volume status is better; weights difficult to interpret - change to lasix 20 BID - likely ready for PO tomorrow - cont coreg, lisinopril - no biV or AICD in place - echo similar to previous # CAD s/p pci - trops flat, doubt ACS - cont asa, statin, coreg, lisinopril - chronic LBBB # w/c bound - lives at [facility] # L hip fx, no surgical repair # HLD # FCFT # lovenox ## CXR personally reviewed tele reviewed - benign Subjective: SOB better; overall feels better today Objective: Vital Signs Temp Pulse Resp BP Pulse Ox 37.4 C 89 16 103/62 98 09/25/16 11:17 09/25/16 11:17 09/25/16 11:17 09/25/16 11:17 09/25/16 11:17 Laboratory Results 09/25/16 04:30 09/25/16 04:30 09/24/16 09/25/16 09/26/16 05:59 05:59 05:59 Intake Total 880 300 Output Total 2570 500 Balance -1690 -200 PT 15.2 SEC (12.0-15.0) H 09/24/16 05:42 INR 1.20 (0.83-1.16) H 09/24/16 05:42 - Physical Exam Constitutional: no apparent distress, appears nourished, other (sleeping in chair) Cardiovascular: regular rate and rhythym, systolic murmur, No tachycardia, No bradycardia Respiratory: no respiratory distress, no rales or rhonchi, clear to auscultation Gastrointestinal: normoactive bowel sounds, soft, non-tender abdomen, no palpable masses ICD10 Worksheet Patient Problems: Problems Problem Status Onset Chest pain Acute CAD (coronary artery disease) Acute CHF (congestive heart failure) Acute Closed right hip fracture Acute UTI (urinary tract infection) Acute Generalized weakness Acute Hip fracture Acute Chronic Disease Mgmt/Transitional Care Acute Palliative care encounter Acute Pulmonary edema Acute Volume overload Acute Acute decompensated heart failure Acute
[2016-09-25] MEDS: traZODone 50 MG TAB PO SCH (20:06)
[2016-09-25] MEDS: ATORVASTATIN CALCIUM 40 MG TAB PO SCH (20:06)
[2016-09-26 06:09] LABS: % IMMATURE GRANULYOCYTES 0.5 % (0.0-1.1); ABSOLUTE IMMATURE GRANULOCYTES 0.03 10^3/uL (0.00-0.10); ADD DIFF? NO; ADD MORPH? NO; ADD SCAN? NO; ATYPICAL LYMPHOCYTE FLAG 50 (0-99); FRAGMENT RBC FLAG 0 (0-99); HEMATOCRIT 38.3 % (40.0-51.0); HEMOGLOBIN 12.8 g/dL (13.7-17.5); LEFT SHIFT FLG 10 (0-99); LIPEMIA HEMOLYSIS FLAG 80 (0-99); MEAN CELL HEMOGLOBIN 29.5 pg (27.9-34.1); MEAN CELL HEMOGLOBIN CONCENTR. 33.4 g/dL (32.4-36.7); MEAN CELL VOLUME 88.2 fL (81.5-99.8); MEAN PLATELET VOLUME 9.4 fL (8.7-11.7); PLATELET CLUMPS FLAG 0 (0-99); PLATELET COUNT 262 10^3/uL (150-400); RED BLOOD CELL COUNT 4.34 10^6/uL (4.40-6.38); RED CELL DISTRIBUTION WIDTH 16.1 % (11.5-15.2)
[2016-09-26 07:32] VITALS: BP 126/71; PULSE 88; RESP 18; TEMP 97.5; O2SAT 96
[2016-09-26 07:44] LABS: ANION GAP 12 mEq/L (8-16); CALCIUM 8.8 mg/dL (8.5-10.4); CARBON DIOXIDE 22 mEq/l (22-31); CHLORIDE 103 mEq/L (97-110); CREATININE 0.9 mg/dL (0.7-1.3); GLOMERULAR FILTRATION RATE > 60; GLUCOSE 92 mg/dL (70-100); POTASSIUM 4.1 mEq/L (3.5-5.2); SODIUM 137 mEq/L (134-144)
[2016-09-26] MEDS: FUROSEMIDE 40 MG/4 ML VIAL IVP SCH (07:56)
[2016-09-26] MEDS: LISINOPRIL 2.5 MG TAB PO SCH (07:58)
[2016-09-26] MEDS: CARVEDILOL 3.125 MG TAB PO SCH (07:58)
[2016-09-26] MEDS: POTASSIUM CL 20 MEQ TAB PO SCH (07:58)
[2016-09-26] MEDS: PANTOPRAZOLE SODIUM 40 MG TAB PO SCH (07:58)
[2016-09-26] MEDS: ASPIRIN EC 81 MG TAB PO SCH (07:58)
[2016-09-26] MEDS: ENOXAPARIN 40 MG/0.4 ML SYR SC SCH (07:59)
--- NOTE | 2016-09-26 10:44 | PDIAF ---
- Diagnosis Diagnosis: chf exacerbation Code Status: Full Code - Medication Management Discharge Medications: Medications to Continue on Transfer Atorvastatin Calcium [Lipitor 40 mg (*)] 40 mg PO HS 03/23/16 [Last Taken ] Pantoprazole Sodium [Protonix 40mg (*)] 40 mg PO DAILY 03/23/16 [Last Taken 06/01] Acetaminophen [Tylenol 325mg (*)] 650 mg PO Q4 PRN #0 tab 03/26/16 [Last Taken 09/15/16] Methyl Salicylate/Menthol [Icy Hot [place]] 1 madhuri TP BID PRN 06/10/16 [Last Taken Unknown] Ondansetron Odt [Zofran Odt 4 mg (*)] 4 mg PO Q6 PRN 06/10/16 [Last Taken Unknown] Carvedilol [Coreg (*)] 3.125 mg PO BIDMEAL #0 tab 06/13/16 [Last Taken 09/23/16] Lisinopril [Zestril 2.5 mg (*)] 2.5 mg PO DAILY #0 tab 06/13/16 [Last Taken 06/01] Potassium Cl [Klor-Con 20 meq (*)] 20 meq PO DAILY #0 tab 06/13/16 [Last Taken 09/23/16] ALPRAZolam [Xanax 0.5 MG (*)] 0.5 mg PO Q8H PRN 09/24/16 [Last Taken 09/22/16] Acetaminophen [Tylenol 325mg (*)] 650 mg PO BID 09/24/16 [Last Taken 09/23/16] Aspirin EC [Aspirin EC 81 mg (*)] 81 mg PO DAILY 09/24/16 [Last Taken 09/23/16] Magnesium Hydroxide/Al Hydrox [Mylanta Liquid] 30 ml PO Q6H PRN 09/24/16 [Last Taken Unknown] Melatonin [Melatonin 3 MG (*)] 6 mg PO HS 09/24/16 [Last Taken 09/23/16] Furosemide [Lasix 20 MG (*)] 20 mg PO BID AT 7AM AND 3PM #0 tab 09/26/16 [Last Taken Unknown] Discharge Medications: Refer to the Discharge Home Medication list for PRN reason. - Orders Diet Recommendation: sodium restricted Weigh Patient: daily - Labs/Radiology BMP Date: 10/06/16 - Follow Up Care Current Providers and Referrals: [facility] [Primary Care Provider] - As per Instructions
--- NOTE | 2016-09-26 15:33 | GDS ---
[f rep st] DISCHARGE SUMMARY DISCHARGE DIAGNOSES: 1. Acute systolic congestive heart failure exacerbation. 2. History of coronary artery disease. 3. Chronic debility due to left hip fracture. HISTORY: This is an 86-year-old male with known history of CHF with an EF of 15% to 20%. He present ed with increasing shortness of breath, lower extremity edema. HOSPITAL COURSE: The patient was admitted and started on IV diuresis. An echocardiogram was done wh ich showed an EF of about 20% which is about the same as it was before. He was diuresed and currentl y is euvolemic. I am unsure why he went into the CHF exacerbation. He has been fairly stable since May of last year. However he is on a very small dose of Lasix 20 mg daily. Will increase that to 20 mg twice jesus ly for now and will get daily weights. Will check a BNP level and a basic metabolic panel in 1-1/2 w eeks. TIME SPENT: Greater than 30 minutes was spent on discharge. /[id number]/MODL
== END 2016-09-26 15:50 | DRG 293 ==
LOC: EDUNIT# → F2W 09-24 03:41
PROVIDERS: ADMIT Internal Medicine; ATTEND Internal Medicine
DX: I50.23 Acute on chronic systolic (congestive) heart failure (principal); I25.10 Atherosclerotic heart disease of native coronary artery without angina pectoris; F03.90 Unspecified dementia, unspecified severity, without behavioral disturbance, psychotic disturbance, mood disturbance, and anxiety; I10 Essential (primary) hypertension; E78.5 Hyperlipidemia, unspecified; Z95.5 Presence of coronary angioplasty implant and graft; Z99.3 Dependence on wheelchair
CPT/HCPCS: 96374; 97165-GO; G8987-GO-CL; G8988-GO-CK; J1650; Q9967

== ENCOUNTER 2016-10-21 13:23 | Emergency (ER) | payer OTHER, BC ==
--- NOTE | 2016-10-21 13:34 | EDPHY ---
H & P Time Seen by Provider: 10/21/16 13:30 HPI/ROS: CHIEF COMPLAINT: Concerned about constipation HISTORY OF PRESENT ILLNESS: The patient's history is limited by dementia. By report from paramedics he called 911 today twice with reports that he has not had a bowel movement 7 days. For reasons uncertain patient was brought to the emergency department today despite the fact that nursing staff reports he has had normal bowel movements. The patient denies any acute abdominal pain vomiting or fever. REVIEW OF SYSTEMS: A comprehensive 10 point review of systems is limited by the patient's dementia Source: Patient - Personal History Tetanus Vaccine Date: UNSURE - Medical/Surgical History Hx Asthma: No Hx Chronic Respiratory Disease: No Hx Diabetes: No Hx Cardiac Disease: Yes Hx Renal Disease: No Hx Cirrhosis: No Hx Alcoholism: No Hx HIV/AIDS: No Hx Splenectomy or Spleen Trauma: No Other PMH: CAD, Stents x5, HTN, hyperlipidemia,CHF, hernis repair, R hip fx 01/28 , right hip fracture - Social History Smoking Status: Never smoked - Physical Exam Exam: General Appearance: Elderly male, no acute distress Eyes: Pupils equal and round no pallor or injection ENT, Mouth: Mucous membranes moist Respiratory: There are no retractions, lungs are clear to auscultation Cardiovascular: Regular rate and rhythm Gastrointestinal: Abdomen is soft and nontender, no masses, bowel sounds normal Neurological: Moves all 4 extremities with appropriate strength Skin: Warm and dry, no rashes Musculoskeletal: Neck is supple nontender Extremities: symmetrical, full range of motion Constitutional: Initial Vital Signs Temperature (C) 36.5 C 10/21/16 13:37 Heart Rate 75 10/21/16 13:37 Respiratory Rate 16 10/21/16 13:37 Blood Pressure 125/75 H 10/21/16 13:37 O2 Sat (%) 100 10/21/16 13:37 O2 Delivery Mode Room Air Allergies/Adverse Reactions: Penicillins Allergy (Mild, Verified 09/23/16 23:44) Rash Home Medications: Medication Instructions Recorded Atorvastatin Calcium [Lipitor 40 40 mg PO HS 03/23/16 mg (*)] Pantoprazole Sodium [Protonix 40mg 40 mg PO DAILY 03/23/16 (*)] Acetaminophen [Tylenol 325mg (*)] 650 mg PO Q4 PRN #0 tab 03/26/16 Methyl Salicylate/Menthol [Icy Hot 1 madhuri TP BID PRN 06/10/16 [place]] Ondansetron Odt [Zofran Odt 4 mg 4 mg PO Q6 PRN 06/10/16 (*)] Carvedilol [Coreg (*)] 3.125 mg PO BIDMEAL #0 tab 06/13/16 Lisinopril [Zestril 2.5 mg (*)] 2.5 mg PO DAILY #0 tab 06/13/16 Potassium Cl [Klor-Con 20 meq (*)] 20 meq PO DAILY #0 tab 06/13/16 ALPRAZolam [Xanax 0.5 MG (*)] 0.5 mg PO Q8H PRN 09/24/16 Acetaminophen [Tylenol 325mg (*)] 650 mg PO BID 09/24/16 Aspirin EC [Aspirin EC 81 mg (*)] 81 mg PO DAILY 09/24/16 Magnesium Hydroxide/Al Hydrox 30 ml PO Q6H PRN 09/24/16 [Mylanta Liquid] Melatonin [Melatonin 3 MG (*)] 6 mg PO HS 09/24/16 Furosemide [Lasix 20 MG (*)] 20 mg PO BID AT 7AM AND 3PM #0 tab 09/26/16 Docusate Sodium [Colace 100 MG (*)] 100 mg PO BID PRN #30 cap 10/21/16 Magnesium Citrate [Magnesium 300 ml PO ONCE #1 bottle 10/21/16 Citrate 300 ml (*)] Medical Decision Making - Diagnostics Imaging: Imaging Impressions Abdomen X-Ray 10/21/16 13:28 Impression: Consistent with constipation. ED Course/Re-evaluation: I reviewed the patient's past medical records. The patient presents to the ED with about constipation. There is conflicting information about whether the patient is truly constipated. I find the patient's abdominal exam to be benign. The patient's KUB confirms mild constipation. I do feel the patient can be discharged back to his [facility] facility with instructions to use magnesium citrate for constipation. Differential Diagnosis: Differential diagnosis considered includes constipation, perforation, obstruction, infection Departure - Departure Disposition: Home, Routine, Self-Care Clinical Impression: Vascular dementia, Constipation, Fecal impaction Condition: Good Instructions: Constipation (ED) Additional Instructions: 1. Please follow up with your primary care provider as needed. 2. Please take magnesium citrate as prescribed for constipation. 3. Return to the ED for severe abdominal pain, fever, vomiting or other concerns. 4. Use Colace as needed. Referrals: Patient,NotPresent [Unknown] - As per Instructions Prescriptions: Docusate Sodium [Colace 100 MG (*)] 100 mg PO BID PRN #30 cap PRN Reason: for constipation Magnesium Citrate [Magnesium Citrate 300 ml (*)] 300 ml PO ONCE #1 bottle
[2016-10-21 13:41] VITALS: BP 125/75; TEMP 97.7
[2016-10-21 14:15] VITALS: PULSE 79; RESP 18; O2SAT 97
== END 2016-10-21 14:59 | disposition home or self-care (01) ==
LOC: EDUNIT#
DX: K59.00 Constipation, unspecified (principal); F01.50 Vascular dementia, unspecified severity, without behavioral disturbance, psychotic disturbance, mood disturbance, and anxiety; I25.10 Atherosclerotic heart disease of native coronary artery without angina pectoris; I10 Essential (primary) hypertension; I50.9 Heart failure, unspecified; Z79.82 Long term (current) use of aspirin; Z95.5 Presence of coronary angioplasty implant and graft

== ENCOUNTER → 2017-01-19 | Outpatient (CLI) | payer OTHER, BC | LOC: BHFA 10:45 | PROVIDERS: ATTEND Internal Medicine Cardiovascular Disease | DX: I50.22 Chronic systolic (congestive) heart failure (principal); I25.10 Atherosclerotic heart disease of native coronary artery without angina pectoris; R06.02 Shortness of breath; R53.1 Weakness ==

== ENCOUNTER 2017-04-03 14:23 | Emergency (ER) | payer OTHER, BC ==
--- NOTE | 2017-04-03 14:42 | CPEKG ---
Heart Rate: 75 RR Interval: 800 P-R Interval: 150 QRSD Interval: 162 QT Interval: 452 QTC Interval: 505 P [place]: 0 QRS [place]: -34 T Wave [place]: 116 EKG Severity - ABNORMAL ECG - EKG Impression: SINUS RHYTHM EKG Impression: VENTRICULAR PREMATURE COMPLEX EKG Impression: LEFT BUNDLE BRANCH BLOCK Electronically Signed By: Yonas Ceja 03-Apr-2017 22:02:14
--- NOTE | 2017-04-03 14:52 | EDPHY ---
H & P Stated Complaint: CP Time Seen by Provider: 04/03/17 14:52 - Personal History Current Tetanus/Diphtheria Vaccine: Unsure Current Tetanus Diphtheria and Acellular Pertussis (TDAP): Unsure Tetanus Vaccine Date: UNSURE - Medical/Surgical History Hx Asthma: No Hx Chronic Respiratory Disease: No Hx Diabetes: No Hx Cardiac Disease: Yes Hx Renal Disease: No Hx Cirrhosis: No Hx Alcoholism: No Hx HIV/AIDS: No Hx Splenectomy or Spleen Trauma: No Other PMH: CAD, Stents x5, HTN, hyperlipidemia,CHF, hernis repair, R hip fx 01/28 , right hip fracture - Social History Smoking Status: Never smoked Constitutional: Initial Vital Signs Temperature (C) 36.3 C 04/03/17 14:23 Heart Rate 68 04/03/17 14:23 Respiratory Rate 16 04/03/17 14:23 Blood Pressure 132/66 H 04/03/17 14:23 O2 Sat (%) 100 04/03/17 14:23 O2 Delivery Mode Room Air Allergies/Adverse Reactions: Penicillins Allergy (Mild, Verified 09/23/16 23:44) Rash Home Medications: Medication Instructions Recorded Atorvastatin Calcium [Lipitor 40 40 mg PO HS 03/23/16 mg (*)] Pantoprazole Sodium [Protonix 40mg 40 mg PO DAILY 03/23/16 (*)] Acetaminophen [Tylenol 325mg (*)] 650 mg PO Q4 PRN #0 tab 03/26/16 Methyl Salicylate/Menthol [Icy Hot 1 madhuri TP BID PRN 06/10/16 [place]] Ondansetron Odt [Zofran Odt 4 mg 4 mg PO Q6 PRN 06/10/16 (*)] Carvedilol [Coreg (*)] 3.125 mg PO BIDMEAL #0 tab 06/13/16 Lisinopril [Zestril 2.5 mg (*)] 2.5 mg PO DAILY #0 tab 06/13/16 Potassium Cl [Klor-Con 20 meq (*)] 20 meq PO DAILY #0 tab 06/13/16 ALPRAZolam [Xanax 0.5 MG (*)] 0.5 mg PO Q8H PRN 09/24/16 Acetaminophen [Tylenol 325mg (*)] 650 mg PO BID 09/24/16 Aspirin EC [Aspirin EC 81 mg (*)] 81 mg PO DAILY 09/24/16 Magnesium Hydroxide/Al Hydrox 30 ml PO Q6H PRN 09/24/16 [Mylanta Liquid] Melatonin [Melatonin 3 MG (*)] 6 mg PO HS 09/24/16 Furosemide [Lasix 20 MG (*)] 20 mg PO BID AT 7AM AND 3PM #0 tab 09/26/16 Docusate Sodium [Colace 100 MG (*)] 100 mg PO BID PRN #30 cap 10/21/16 Magnesium Citrate [Magnesium 300 ml PO ONCE #1 bottle 10/21/16 Citrate 300 ml (*)] Medical Decision Making ED Course/Re-evaluation: CHIEF COMPLAINT: Chest pain HISTORY OF PRESENT ILLNESS: This patient is an 86 year old male with dementia history of CAD and multiple stent placements arriving via EMS complaining of chest pain onset this morning, now resolved. When EMS arrived, his chest pain had already resolved. He endorses some daily chest pains. He endorses pains that occasionally radiate up his left leg, but indicates the right leg. He has no complaints at this time. He is beginning to discuss his service in [employer]. Further HPI limited due to the patient's dementia. REVIEW OF SYSTEMS: A 10 point review of systems was performed and is limited due to the patient's dementia. PHYSICAL EXAM: HR, BP, O2 Sat, RR. Temp noted General Appearance: Alert, well hydrated, appropriate, and non-toxic appearing. Head: Atraumatic without scalp tenderness or obvious injury Eyes: Pupils equal, round, reactive to light and accommodation, EOMI, no trauma , no injection. Nose: Atraumatic. Throat: Mucus membranes moist. Neck: Supple, nontender, no lymphadenopathy. Respiratory: No retractions, no distress, no wheezes, and no accessory muscle use. Lungs are clear to auscultation bilaterally. Cardiovascular: Regular rate and rhythm, no murmurs, rubs, or gallops. Good capillary refill all extremities. Gastrointestinal: Abdomen is soft, nontender, non-distended, no masses, no rebound, no guarding, no peritoneal signs. Musculoskeletal: Normal active ROM of all extremities, atraumatic. Neurological: Alert, appropriate, and interactive. Nonfocal neuro exam. Skin: No rashes, good turgor, no nodules on palpation. Past medical history: Coronary Artery Disease, Congestive Heart Failure, Hypertension, Chronic LBBB, mild dementia, Past surgical history: Multiple stent placements Family history: Noncontributory Social history: Lives at [facility]. Originally from [place]. Retired from the [employer]. Nonsmoker. Prior medical records reviewed including admission from 09/24/16 for chest pain. PROCEDURES: The 12 lead EKG was interpreted by myself. See hard copy and/or "tracemaster" electronic copy for interpretation. Sinus rhythm, rate 75, LBBB. This patient has history of chronic LBBB, reviewed in prior medical records. DIFFERENTIAL DIAGNOSIS: The differential diagnosis for the patient's chest pain included but was not limited to myocardial ischemia, pulmonary embolus, chest wall pain, pleural inflammation, and pulmonary infectious causes. MEDICAL DECISION [id number] year old male with dementia and history of CAD, hypertension, and multiple stent placements presents with history of daily chest pains. He is currently asymptomatic. Plan to consult with case management regarding this patient. As he currently has no complaints, I do not recommend subjecting him to a full cardiac workup at this time. Plan to discharge back to [facility] in good condition. He will follow up with his primary care provider for continued evaluation of dynamic complaints. Return precautions discussed. Departure - Departure Disposition: Home, Routine, Self-Care Clinical Impression: Dementia Qualifiers: Dementia type: unspecified type Dementia behavioral disturbance: without behavioral disturbance Qualified Code(s): F03.90 - Unspecified dementia without behavioral disturbance Condition: Good Instructions: Dementia (ED) Additional Instructions: 1. Follow up with your primary care physician for continued evaluation of symptoms and dynamic complaints. 2. Return for severe chest pains, shortness of breath, fever, or other worsening of condition. Referrals: Lissy Varghese MD [[facility] Primary Care Provider] - As per Instructions Report Scribed for: Yonas Ceja Report Scribed by: Kayla Larkin Date of Report: 04/03/17 Time of Report: 14:54
[2017-04-03 15:33] VITALS: BP 109/68; PULSE 69; RESP 23; O2SAT 99
[2017-04-03 16:43] VITALS: TEMP 97.5
--- NOTE | 2017-04-03 16:43 | ASMTCMCOM ---
CM Note CM Note Notes: Patient brought to the ED by EMS from [facility] for chest pain, although patient's chest pain had resolved prior to EMS arrival at [facility]. Patient medically cleared and stable for discharge. This CM arranged for non-emergent stretcher transport through [facility] for patient to return to [facility]. PCS completed, copy provided to [facility], original placed in patient chart. Date Signed: 04/03/2017 04:42 PM Electronically Signed By:Valeria Perez RN
== END 2017-04-03 16:30 | disposition home or self-care (01) ==
LOC: EDUNIT#
DX: F03.90 Unspecified dementia, unspecified severity, without behavioral disturbance, psychotic disturbance, mood disturbance, and anxiety (principal); I25.10 Atherosclerotic heart disease of native coronary artery without angina pectoris; I11.0 Hypertensive heart disease with heart failure; I50.9 Heart failure, unspecified; Z95.5 Presence of coronary angioplasty implant and graft; Z79.82 Long term (current) use of aspirin